=== PATIENT | male | born 1990 | race Two or more races ===

== ENCOUNTER 2022-12-08 20:30 | Emergency (ER) | payer OTHER ==
[~2022-12-08] VITALS: Ht 175.3 cm; Wt 69.4 kg
== END 2022-12-08 22:06 | disposition home or self-care (01) ==
LOC: ER 20:30
DX: M54.2 Cervicalgia (principal); V43.52XA Car driver injured in collision with other type car in traffic accident, initial encounter; Y93.89 Activity, other specified; Y92.89 Other specified places as the place of occurrence of the external cause; Y99.8 Other external cause status